=== PATIENT | female | born 1975 | race Caucasian/White ===

== ENCOUNTER 2016-09-06 19:06 | Emergency (ER) | payer MEDICARE ==
[~2016-09-06] VITALS: Ht 170.2 cm; Wt 63.5 kg
[2016-09-06 19:15] VITALS: BP 125/85
[2016-09-06 19:35] VITALS: BP 125/85
--- NOTE | 2016-09-06 20:01 | Emergency Room Report ---
History of Present Illness General Chief Complaint: General Complaint Source: Patient Present Illness HPI The patient is a 41-year-old female presenting for bilateral hand swelling and numbness. The patient states that she first noticed this 2 days prior after waking up. The patient denies any cardiac history. The patient denies any other symptoms including pain, rash, CP, SOB, leg swelling, diaphoresis, N, V Allergies: Coded Allergies: ASPIRIN (Verified Allergy, Unknown, 09/06/16) OPIOIDS - MORPHINE ANALOGUES (Unverified Allergy, Unknown, 09/06/16) Uncoded Allergies: opiates (Allergy, Unknown, 09/06/16) Patient History Past Medical History: see triage record Pertinent Family History: none Last Menstrual Period: 2 weeks ago Reviewed Nursing Documentation: PMH: Agreed, PSxH: Agreed Review of Systems All Other Systems: negative except mentioned in HPI Physical Exam Vital Signs Date Time Temp Pulse Resp B/P Pulse Ox O2 Delivery O2 Flow Rate FiO2 09/06/16 19:08 97.3 86 16 125/85 97 Room Air Sp02 EP Interpretation: reviewed, normal General Appearance: no apparent distress, alert, GCS 15, non-toxic Head: normocephalic, atraumatic Eyes: bilateral eye PERRL, bilateral eye normal inspection Respiratory: chest non-tender, lungs clear, normal breath sounds, no respiratory distress, no accessory muscle use, no wheezing, speaking full sentences Cardiovascular #1: regular rate, rhythm, no edema, no JVD, no murmur, no rub, normal capillary refill Cardiovascular #2: 2+ carotid (R), 2+ carotid (L), 2+ radial (R), 2+ radial (L) , 2+ dorsalis pedis (R), 2+ dorsalis pedis (L) Gastrointestinal: normal bowel sounds, non tender, soft, non-distended, no guarding, no rebound Musculoskeletal: back normal, gait/station normal, normal range of motion, non- tender Neurologic: alert, oriented x3, responsive, motor strength/tone normal, sensory intact, speech normal Psychiatric: judgement/insight normal, memory normal, mood/affect normal, no suicidal/homicidal ideation Reflexes: 3+ bicep (R), 3+ bicep (L), 3+ tricep (R), 3+ tricep (L), 3+ knee (R) , 3+ knee (L) Skin: normal color, no rash, warm/dry, well hydrated Lymphatic: no adenopathy Medical Decision Making PA Attestation Dr. easley is my supervising physician. Patient management was discussed with my supervising physician Diagnostic Impression: Primary Impression: Peripheral neuropathy ER Course The patient is a 41-year-old female presenting for bilateral hand swelling and numbness. DDx: cellulitis, arthritis, sprain, contusion, fracture PE:Vitals within normal limits. No apparent distress Hands: No obvious deformity. Full active range of motion. Sensation is intact to light-touch. No discoloration. Radial pulses 2+ bilaterally. No edema is noted. The patient will be discharged and followup with primary care doctor. Last Vital Signs Date Time Temp Pulse Resp B/P Pulse Ox O2 Delivery O2 Flow Rate FiO2 09/06/16 19:35 97.3 86 16 125/85 97 Room Air Status: improved Disposition: HOME, SELF-CARE Condition: Improved Patient Instructions: Peripheral Neuropathy Additional Instructions: I discussed my findings with the patient. All questions and concerns have been answered. Treatment and medication compliance have been addressed. I advised the patient that they need to follow up with PMD in 3-5 days. Return to ED if symptoms worsen, new symptoms arise, or if needed for any reason. Patient verbalized understanding of discharge instructions. JUNE PHILLIPS Sep 06, 2016 20:01
== END 2016-09-06 19:35 | disposition home or self-care (01) ==
LOC: EDBD 19:25 → EMR 19:25
DX: G62.9 Polyneuropathy, unspecified (principal); Z88.6 Allergy status to analgesic agent
CPT/HCPCS: 99282